=== PATIENT | male | born 1960 | race Caucasian/White ===

== ENCOUNTER 2018-02-04 22:32 | Observation (INO) | payer OTHER ==
[~2018-02-04] VITALS: Ht 167.6 cm; Wt 70.8 kg
--- NOTE | ~2018-02-04 | PROC ---
[facility] [address] [place] [address] PROCEDURE REPORT Name: DAR POLO Room: [address] Mirna Rinaldi#: [id number] Admission: 02/05/18 Attend Phys: Franco Cole MD Discharge: 02/05/18 Date of : 60 Report #: [id number] THIS REPORT FOR: //name// For GI report, please see the Provation report in Perceptive 7 content. By: 1534Medical Records Staff CORRINA /RITO
--- NOTE | ~2018-02-04 | H ---
[address] [address] HISTORY AND PHYSICAL Name: DAR POLO Room: [address] Mirna Rinaldi#: [id number] Admission: 02/05/18 Attend Phys: Franco Cole MD Discharge: 02/05/18 Date of : 60 Report #: [id number] THIS REPORT FOR: //name// For History and Physical please refer to the handwritten note in the patient's medical record. By: [facility]3Medical Records Staff CORRINA /RITO
[2018-02-04] MEDS ORDERED: LISINOPRIL (22:40)
[2018-02-04 22:41] VITALS: BP 145/75
[2018-02-04 23:00] LABS: HEMATOCRIT 46.2 % (42.0-52.0); HEMOGLOBIN 15.6 gm/dL (14.0-18.0); MCH 31.4 pg (26.0-34.0); MCHC 33.8 g/dL (28.0-37.0); MCV 92.9 fL (80.0-100.0); MPV 8.6 fl. (7.2-11.1); NUCLEATED RBCS 0 /100WBC; PLATELET COUNT* 295 thou/uL (150-400); RBC 4.98 mil/uL (4.50-6.00); RDW-CV 13.6 % (10.5-14.5)
[2018-02-04 23:06] LABS: CALCIUM 8.1 mg/dL (8.5-10.1); CREATININE 0.8 mg/dL (0.6-1.3); POTASSIUM 3.3 mmol/L (3.5-5.1)
[2018-02-04 23:10] LABS: APTT 26.1 Seconds (25.0-31.3); PROTIME 9.9 Seconds (9.20-11.50)
[2018-02-04 23:11] LABS: ALBUMIN 3.3 g/dL (3.4-5.0); TOTAL BILIRUBIN 0.3 mg/dL (<0.1-1.0); TOTAL PROTEIN 5.8 g/dL (6.4-8.2)
[2018-02-04 23:38] VITALS: BP 145/75
[2018-02-05 00:23] LABS: ABSOLUTE BASOPHILS 0.1 thou/uL (0.0-0.2); ABSOLUTE EOSINOPHILS 0.8 thou/uL (0.0-0.7); ABSOLUTE LYMPHOCYTES 1.7 thou/uL (0.8-5.3); ABSOLUTE MONOCYTES 0.6 thou/uL (0.0-1.2); ABSOLUTE NEUTROPHILS 3.9 thou/uL (1.6-8.1); ANISOCYTOSIS 1+; PLATELET ESTIMATE ADEQUATE; TOXIC GRANULATION 1+
[2018-02-05 04:00] VITALS: BP 129/66
--- NOTE | 2018-02-05 05:48 | NUR ---
PT TO FLOOR APROX 0100 FROM [facility]. PT A&O X4 CALM COOPERITVE. MED/SURG STATUS. PT TO DISCHARGE IN AM. ADLIB IN ROOM. VITALS WNL. SEE MAR. SEE CHARTING. HOURLY ROUNDING FOR SAFETY.
[2018-02-05 08:04] VITALS: BP 142/75
[2018-02-05 09:19] VITALS: BP 142/75
--- NOTE | 2018-02-05 09:29 | NUR ---
PT GIVEN DISCHARGE INSTRUCTIONS AT THIS TIME. PT VERBALIZES UNDERSTANDING. PT HAS C/O SORE THROAT. INSTRUCTED TO USE OVER THE COUNTER SPRAY AND WILL RESOLVE IN A COUPLE OF DAYS. PT WILL AMBULATE TO PERSONAL VEHICLE WITH THIS NURSE UPON DC. NO OTHER CONCERNS AT THIS TIME.
--- NOTE | 2018-02-05 15:55 | EKG ---
[place] [address] ELECTROCARDIOGRAM REPORT Name: DAR POLO Room: [address]R.#: [id number] Admission: 02/05/18 Attend Phys: Franco Cole MD Discharge: 02/05/18 Date of : 60 Report #: [id number] THIS REPORT FOR: //name// [facility] ED Test Date: 2018-02-04 Test Time: 23:22:44 Pat Name: DAR POLO Department: Room: [facility] Gender: M [employer] Home [employer]: [place] : 1960 Requested By: Silver Gilbert Order Number: [id number] MD: Neil Francois Measurements Intervals [place] Rate: 74 P: 62 VA: 142 QRS: 41 QRSD: 92 T: 47 QT: 396 QTc: 440 Interpretive Statements Sinus rhythm No previous ECG available for comparison Electronically Signed On 02-05-2018 15:55:21 CDT by Neil Francois [email or web address] <ELECTRONICALLY SIGNED> By: Neil Francois MD, [facility] 02/05/18 1555 2322 21 Neil Francois MD, FACC /EPI
--- NOTE | 2018-02-13 07:06 | PATH ---
[facility] [address] [place] [address] PATHOLOGY RPT PROCEDURE Name: DAR GREENBERG Room: [address] Mirna Rinaldi#: [id number] Admission: 02/05/18 Date of : 60 Discharge: 02/05/18 Report #: [id number] Path Case #: [id number] [facility] Accession Number: [id number] . 01 Material submitted: . ESOPHAGEAL BIOPSY R/O EOE . 01 Clinical history: . None provided . 02 Diagnosis: Esophagus, biopsy: - Hyperplastic squamous epithelium with numerous intraepithelial eosinophils (please see comment). (ASHLEY:kwabena; 02/06/2018) QMS/02/06/2018 . 02 Comment: Greater than 15 eosinophils are present per high power field. This finding is consistent with eosinophilic esophagitis. (ASHLEY:kwabena; 02/06/2018) . 02 Electronically signed: . Israel Celaya MD, Pathologist NPI- [id number] . 01 Gross description: . Received in formalin labeled "Dar Greenberg, esophageal biopsy, rule out EOE," are 3 segments of [place] soft tissue measuring 0.9 x 0.8 x 0.2 cm in aggregate dimensions and ranging from 0.3 to 0.5 cm in maximum dimension. The specimen is submitted entirely in cassette A1. (TSD; 02/05/2018) TOB/TOB . 02 Pathologist provided ICD-10: K20.0 . 02 CPT . 548386 Performed at: 01 [facility] [address] [place] [address] [id number] MD Juliocesar Brown MD Phone: [phone] Performed at: 02 [place] [id number] [address] [id number] MD Singh Simental MD Phone: [phone]
== END 2018-02-05 09:45 | disposition home or self-care (01) ==
LOC: M.GI 22:32 → M.ERS 22:32 → M.GI 23:40 → M.2W 02-05 00:46 → M.EXTOP 02-05 00:46 → M.2W 02-05 08:42
PROVIDERS: Family Medicine; ADMIT Internal Medicine Gastroenterology
DX: T18.120A Food in esophagus causing compression of trachea, initial encounter (principal); I10 Essential (primary) hypertension; X58.XXXA Exposure to other specified factors, initial encounter; Y93.89 Activity, other specified; Y92.89 Other specified places as the place of occurrence of the external cause; Y99.8 Other external cause status

== ENCOUNTER → 2018-07-24 | Outpatient (CLI) | payer OTHER ==
[~2018-07-24] MED LIST: LISINOPRIL
== END ==
LOC: M.CT 10:00
DX: N40.0 Benign prostatic hyperplasia without lower urinary tract symptoms (principal); J98.11 Atelectasis

== ENCOUNTER 2020-06-25 08:04 | Emergency (ER) | payer OTHER ==
[~2020-06-25] VITALS: Ht 167.6 cm; Wt 70.8 kg
[2020-06-25] MEDS ORDERED: FLEXERIL PO (09:30)
[2020-06-25] MEDS ORDERED: HYDROCODON-ACE1 EAC7 PO (09:30)
[2020-06-25 09:36] VITALS: BP 140/74
== END 2020-06-25 09:36 | disposition home or self-care (01) ==
LOC: M.ERS 08:04
DX: S20.212A Contusion of left front wall of thorax, initial encounter (principal); I10 Essential (primary) hypertension; Z79.899 Other long term (current) drug therapy; W01.0XXA Fall on same level from slipping, tripping and stumbling without subsequent striking against object, initial encounter; Y93.89 Activity, other specified; Y92.89 Other specified places as the place of occurrence of the external cause; Y99.8 Other external cause status

== ENCOUNTER → 2020-08-14 | Outpatient (CLI) | payer OTHER ==
[~2020-08-14] MED LIST changes: +FLEXERIL PO; +HYDROCODON-ACE1 EAC7 PO
== END ==
LOC: M.CT 08:04
PROVIDERS: ATTEND Nurse Practitioner Family
DX: E78.00 Pure hypercholesterolemia, unspecified (principal)

== ENCOUNTER → 2021-01-11 | Outpatient (CLI) | payer OTHER | LOC: M.WC 08:30 | PROVIDERS: ATTEND Family Medicine | DX: T22.231A Burn of second degree of right upper arm, initial encounter (principal); T21.21XA Burn of second degree of chest wall, initial encounter; T31.0 Burns involving less than 10% of body surface; L40.9 Psoriasis, unspecified; E78.00 Pure hypercholesterolemia, unspecified; N40.0 Benign prostatic hyperplasia without lower urinary tract symptoms; I10 Essential (primary) hypertension; H26.9 Unspecified cataract; Z79.82 Long term (current) use of aspirin; X08.8XXA Exposure to other specified smoke, fire and flames, initial encounter; Y93.89 Activity, other specified; Y92.89 Other specified places as the place of occurrence of the external cause; Y99.8 Other external cause status ==

== ENCOUNTER → 2021-01-18 | Outpatient (CLI) | payer OTHER | LOC: M.WC 07:45 | PROVIDERS: ATTEND Family Medicine | DX: T22.231D Burn of second degree of right upper arm, subsequent encounter (principal); T21.21XD Burn of second degree of chest wall, subsequent encounter; T31.0 Burns involving less than 10% of body surface; L40.9 Psoriasis, unspecified; E78.00 Pure hypercholesterolemia, unspecified; N40.0 Benign prostatic hyperplasia without lower urinary tract symptoms; I10 Essential (primary) hypertension; H26.9 Unspecified cataract; Z79.82 Long term (current) use of aspirin; X08.8XXD Exposure to other specified smoke, fire and flames, subsequent encounter ==